=== PATIENT | female | born 1990 | race Caucasian/White ===

== ENCOUNTER 2017-04-30 18:14 | Emergency (ER) | payer BC | END 2017-04-30 20:10 | disposition home or self-care (01) | LOC: ERS 18:14 | DX: T24.112A Burn of first degree of left thigh, initial encounter (principal); T24.111A Burn of first degree of right thigh, initial encounter; T24.132A Burn of first degree of left lower leg, initial encounter; T24.131A Burn of first degree of right lower leg, initial encounter; X19.XXXA Contact with other heat and hot substances, initial encounter | CPT/HCPCS: 99283 ==